=== PATIENT | male | born 1985 | race Caucasian/White ===

== ENCOUNTER 2018-01-02 12:30 | Outpatient (CLI) | payer OTHER ==
[~2018-01-02 12:30] MED LIST: AMOX1TAB12 PO; NAPROXEN500 MG PO
== END 2018-01-02 12:37 | disposition home or self-care (01) ==
LOC: RAD 12:30
DX: R05 Cough (principal)

== ENCOUNTER → 2018-01-02 13:55 | Outpatient (CLI) | payer OTHER | END | disposition home or self-care (01) | LOC: EKG 13:55 | DX: S42.231A 3-part fracture of surgical neck of right humerus, initial encounter for closed fracture (principal) ==

== ENCOUNTER → 2018-02-12 | Emergency (ER) | payer OTHER | END | disposition left against medical advice (07) | LOC: ER 17:21 | DX: Z53.20 Procedure and treatment not carried out because of patient's decision for unspecified reasons (principal) ==

== ENCOUNTER → 2018-05-09 | Outpatient (CLI) | payer OTHER | END | disposition home or self-care (01) | LOC: RAD 18:10 | DX: S42.231D 3-part fracture of surgical neck of right humerus, subsequent encounter for fracture with routine healing (principal) ==

== ENCOUNTER 2018-11-19 14:26 | Outpatient (CLI) | payer OTHER | END 2018-11-19 14:31 | disposition home or self-care (01) | LOC: RAD 14:26 | DX: S42.231D 3-part fracture of surgical neck of right humerus, subsequent encounter for fracture with routine healing (principal) ==

== ENCOUNTER 2019-02-22 14:19 | Emergency (ER) | payer OTHER ==
[~2019-02-22] VITALS: Ht 177.8 cm; Wt 74.8 kg
== END 2019-02-22 16:16 | disposition home or self-care (01) ==
LOC: ER 14:19
DX: J32.8 Other chronic sinusitis (principal)